=== PATIENT | female | born 1965 | race Two or more races ===

== ENCOUNTER 2024-01-05 06:38 | Day surgery (SDC) | payer MEDICAID ==
[~2024-01-05] VITALS: Ht 170.2 cm; Wt 72.1 kg
[2024-01-05] VITALS (12 sets, daily range): BP systolic 86–115; BP diastolic 30–71; PULSE 48–64; RESP 13–14; O2SAT 93–95
[~2024-01-05 06:38] MED LIST: ASPI-543 PO; METO25TA5 PO
[2024-01-05] MEDS ORDERED: HEPARIN IN NS 1000Units/500mL 1,500 ML ONE (07:45)
[2024-01-05] MEDS ORDERED: LIDOCAINE 2%HCL (LOCAL ANESTH.) INJ 10ml MDV ONE ×2 (07:45→09:26)
[2024-01-05] MEDS ORDERED: IODIXANOL 320MG/ML 100ML BTL IV ONE ×2 (07:46→09:37)
[2024-01-05] MEDS ORDERED: fentaNYL CITRATE 100 MCG/2 ML VL ONE (08:08)
[2024-01-05] MEDS ORDERED: VERAPAMIL 2.5MG/ML INJ 2ML VIAL IV ONE ×2 (08:08→09:25)
[2024-01-05] MEDS ORDERED: HEPARIN SODIUM (PORCINE) 5000 UNITS/ML 1ML VIAL ONE (08:08)
[2024-01-05] MEDS ORDERED: MIDAZOLAM HCL 2MG/2ML 2ml VIAL (1mg/ml) ONE (08:09)
[2024-01-05] MEDS ORDERED: SODIUM CHL 0.9% 0 ML ONE (09:27)
[2024-01-05] MEDS ORDERED: ANGIOMAX 250 MG VIAL IV ONE (09:27)
[2024-01-05] MEDS: SODIUM CHLORIDE 0.9% 250 ML IV ONE (10:47)
== END 2024-01-05 13:25 | disposition home or self-care (01) ==
LOC: CATH 06:38
PROVIDERS: ATTEND Internal Medicine Cardiovascular Disease
DX: R07.9 Chest pain, unspecified (principal); R06.09 Other forms of dyspnea; I47.10 Supraventricular tachycardia, unspecified; Z79.82 Long term (current) use of aspirin; Z88.8 Allergy status to other drugs, medicaments and biological substances
CPT/HCPCS: 93458; C1887; C1894; J1644; J2001; J2250; J3010; Q9967; 99152